=== PATIENT | male | born 1940 | race Caucasian/White ===

== ENCOUNTER 2017-12-10 16:37 | Inpatient (IN) | payer OTHER, MEDICARE ==
[~2017-12-10] VITALS: Ht 182.9 cm; Wt 98.7 kg
[2017-12-10 17:01] LABS: HEMATOCRIT 45.9 % (38.0-50.0); HEMOGLOBIN 15.4 G/DL (12.5-16.6); MCH 30.9 PG (29.0-34.0); MCHC 33.6 G/DL (30.0-36.0); RBC DIS.WIDTH-CV 12.6 % (11.8-14.6); RBC DIS.WIDTH-SD 42.5 % (39-53); RED BLOOD COUNT 4.99 M/uL (4.00-5.50); WHITE BLOOD COUNT 18.5 K/uL (4.1-10.2)
[2017-12-10 17:20] LABS: CHLORIDE 107 mEq/L (99-109); POTASSIUM 5.3 mEq/L (3.7-5.4); SODIUM 145 mEq/L (136-147)
[2017-12-10 17:22] LABS: GLUCOSE 164 mg/dL (70-99)
[2017-12-10 17:26] LABS: CREATININE 1.3 mg/dL (0.6-1.3); GFR ESTIMATE (CALCULATED) 57 mL/min/ (58.99-99999)
[2017-12-10 17:27] LABS: UREA NITROGEN (BUN) 44 mg/dL (9-23)
[2017-12-10 17:28] LABS: CREATINE KINASE 433 IU/L (1-294)
[2017-12-10 18:37] LABS: HEMATOLOGY COMMENT 1 SN; PLAT.SUFFICIENCY ADEQUATE; PLATELET COUNT 245 K/uL (156-360)
[2017-12-10 19:31] LABS: APPEARANCE CLEAR ((CLEAR)); BILIRUBIN NEGATIVE; BLOOD NEGATIVE; COLOR YELLOW ((YELLOW)); GLUCOSE (STRIP) 50; KETONES 5; LEUKOCYTES NEGATIVE; NITRITE NEGATIVE; PROTEIN (STRIP) NEGATIVE; UCUL ADDED? NO; UROBILINOGEN 0.2 MG/DL (0.2-1.0)
[2017-12-10 19:33] LABS: TROP-I INTERPRETATION NEGATIVE; TROPONIN-I 0.02 ng/mL (0.0-0.30)
[2017-12-10] MEDS ORDERED: OMEPRAZOLE20 M2 PO (19:57)
[2017-12-10] MEDS ORDERED: NAMENDA XR28 MG PO (19:58)
[2017-12-10] MEDS ORDERED: LISINOPRIL40 MG PO (19:59)
[2017-12-10] MEDS ORDERED: GLUCOPHAGE500 MG PO (20:00)
[2017-12-10] MEDS ORDERED: NEURONTIN300 MG PO (20:01)
[2017-12-10] MEDS ORDERED: NOVOLOG PE100 UNITS/ SC (20:02)
[2017-12-10] MEDS ORDERED: LEVEMIR FL100 UNIT/1 SC (20:05)
[2017-12-10] MEDS ORDERED: ARICEPT23 MG PO (20:06)
[2017-12-10] MEDS ORDERED: SIMVASTATIN40 MG PO (20:06)
[2017-12-10] MEDS ORDERED: ALEVE220 MG PO (20:07)
[2017-12-10] MEDS ORDERED: ALLERGY RELIEF180 MG PO (20:10)
[2017-12-10] MEDS ORDERED: FISH OIL 1,2001 EAC7 PO (20:11)
[2017-12-10] MEDS ORDERED: VITAMIN D2000 UNIT PO (20:12)
[2017-12-10] MEDS ORDERED: ONCE DAILY1 EACH PO (20:12)
[2017-12-10] MEDS ORDERED: ASCORBIC ACID500 M3 PO (20:14)
[2017-12-10] MEDS ORDERED: B-121000 MC2 PO (20:14)
[2017-12-10] MEDS ORDERED: VITAMIN E400 UNIT PO (20:15)
[2017-12-10] MEDS ORDERED: SLEEP AID50 MG PO (20:16)
[2017-12-10] MEDS ORDERED: FLOMAX0.4 MG PO (20:21)
[2017-12-10] MEDS ORDERED: QUESTRAN POWDE378 GM PO (20:23)
[2017-12-10] MEDS ORDERED: MOBIC7.5 MG PO (20:23)
[2017-12-11] VITALS (7 sets, daily range): BP systolic 114–153; BP diastolic 65–85
[2017-12-11 01:25] LABS: ALBUMIN 3.7 g/dL (3.2-4.8)
[2017-12-11 01:28] LABS: TOTAL PROTEIN 5.9 g/dL (6.4-8.3)
[2017-12-11 01:30] LABS: TOTAL BILIRUBIN 0.6 mg/dL (0.0-1.0)
[2017-12-11 01:31] LABS: ALKALINE PHOSPHATASE 67 IU/L (3-129)
[2017-12-11 01:33] LABS: AST (GOT) 18 IU/L (2-34); DIRECT BILIRUBIN 0.3 mg/dL (0.0-0.3)
[2017-12-11 01:34] LABS: ALT (GPT) 16 IU/L (3-49)
[2017-12-11 01:40] LABS: TROP-I INTERPRETATION NEGATIVE; TROPONIN-I 0.01 ng/mL (0.0-0.30)
[2017-12-11 02:59] LABS: HDL CHOLESTEROL 26 MG/DL (Desirable>=40); LDL CHOLESTEROL 59 mg/dL (Desirable<100); NON-HDL CHOLESTEROL 90 mg/dL (Desirable<160); TOTAL CHOLESTEROL 116 mg/dL (Desirable<200); TRIGLYCERIDES 156 MG/DL (Normal: <150)
[2017-12-11 07:01] LABS: TROP-I INTERPRETATION NEGATIVE; TROPONIN-I 0.01 ng/mL (0.0-0.30)
[2017-12-11 09:30] LABS: HEMOGLOBIN A1c (GLYCOHEMOGLOB) 7.3 % (Below 5.7)
[2017-12-11 12:51] LABS: D-DIMER ELISA < 150.00 ng/mLDDU (<230)
[2017-12-12 04:20] VITALS: BP 140/74
[2017-12-12 05:42] LABS: BASOPHIL (%) 0.5 % (0-1); BASOPHIL COUNT 0.1 K/uL (0-0.1); EOSINOPHIL (%) 5.3 % (0-5); EOSINOPHIL COUNT 0.5 K/uL (0-0.3); IMMATURE GRANULOCYTE (%) 0.4 % (0.0-0.7); LYMPHOCYTE (%) 22.5 % (15-42); LYMPHOCYTE COUNT 2.2 K/uL (1.0-2.8); MCH 29.7 PG (29.0-34.0); MCHC 32.2 G/DL (30.0-36.0); MCV 92.1 FL (86-99); MONOCYTE (%) 9.7 % (3-12); MONOCYTE COUNT 0.9 K/uL (0-0.8); NEUTROPHIL (%) 61.6 % (45-76); NEUTROPHIL COUNT 5.9 K/uL (1.8-6.4); PLATELET COUNT 214 K/uL (156-360); RBC DIS.WIDTH-CV 12.6 % (11.8-14.6); RBC DIS.WIDTH-SD 42.6 % (39-53); RED BLOOD COUNT 4.45 M/uL (4.00-5.50); WHITE BLOOD COUNT 9.7 K/uL (4.1-10.2)
[2017-12-12 05:46] LABS: HEMOGLOBIN 13.2 G/DL (12.5-16.6)
[2017-12-12 05:48] LABS: ALBUMIN 3.5 G/DL (3.2-4.8); ALKALINE PHOSPHATASE 46 IU/L (3-129); ALT (GPT) 12 IU/L (3-49); AST (GOT) 12 IU/L (2-34); CHLORIDE 106 MEQ/L (99-109); GFR ESTIMATE (CALCULATED) > 59 mL/min/ (58.99-99999); GLUCOSE 172 mg/dL (70-99); POTASSIUM 4.5 MEQ/L (3.7-5.4); SODIUM 141 MEQ/L (136-147); TOTAL BILIRUBIN 0.6 MG/DL (0.0-1.0); TOTAL PROTEIN 5.6 G/DL (6.4-8.3); UREA NITROGEN (BUN) 22 mg/dL (9-23)
[2017-12-12 07:13] VITALS: BP 132/70
[2017-12-12 09:21] LABS: CREATINE KINASE 202 IU/L (1-294)
[2017-12-12 11:15] VITALS: BP 135/79
[2017-12-12 16:52] VITALS: BP 139/78
[2017-12-12 20:00] VITALS: BP 129/66
[2017-12-12 23:55] VITALS: BP 114/66
[2017-12-13 04:00] VITALS: BP 135/83
[2017-12-13 05:14] LABS: BASOPHIL (%) 0.4 % (0-1); EOSINOPHIL (%) 4.8 % (0-5); EOSINOPHIL COUNT 0.5 K/uL (0-0.3); HEMATOCRIT 43.2 % (38.0-50.0); HEMOGLOBIN 14.2 G/DL (12.5-16.6); IMMATURE GRANULOCYTE (%) 0.5 % (0.0-0.7); LYMPHOCYTE (%) 17.7 % (15-42); LYMPHOCYTE COUNT 1.8 K/uL (1.0-2.8); MCH 30.1 PG (29.0-34.0); MCHC 32.9 G/DL (30.0-36.0); MCV 91.5 FL (86-99); NEUTROPHIL (%) 66.6 % (45-76); NEUTROPHIL COUNT 6.7 K/uL (1.8-6.4); PLATELET COUNT 241 K/uL (156-360); RBC DIS.WIDTH-CV 12.5 % (11.8-14.6); RBC DIS.WIDTH-SD 41.9 % (39-53); RED BLOOD COUNT 4.72 M/uL (4.00-5.50); WHITE BLOOD COUNT 10.1 K/uL (4.1-10.2)
[2017-12-13 05:44] LABS: CHLORIDE 106 MEQ/L (99-109); GFR ESTIMATE (CALCULATED) > 59 mL/min/ (58.99-99999); GLUCOSE 173 mg/dL (70-99); POTASSIUM 4.4 MEQ/L (3.7-5.4); SODIUM 140 MEQ/L (136-147); UREA NITROGEN (BUN) 20 mg/dL (9-23)
[2017-12-13 08:36] VITALS: BP 127/84
[2017-12-13] MEDS ORDERED: CLOPIDOGREL75 MG PO (11:18)
[2017-12-13] MEDS ORDERED: NOVOLOG 10100 UNITS/ SC (11:21)
[2017-12-13] MEDS ORDERED: Salonpas 4% Patch TD (11:21)
[2017-12-13] MEDS ORDERED: TYLENOL EXTRA500 MG PO (11:22)
== END 2017-12-13 13:17 | DRG 312 ==
LOC: EME 16:37 → 4EAST 23:53 → EDOF 23:53 → ENRESERV 23:54 → 4EAST 12-11 00:44
PROVIDERS: Emergency Medicine; Hospitalist
DX: R55 Syncope and collapse (principal); I95.9 Hypotension, unspecified; S00.81XA Abrasion of other part of head, initial encounter; W18.2XXA Fall in (into) shower or empty bathtub, initial encounter; Y93.E1 Activity, personal bathing and showering; M62.82 Rhabdomyolysis; E86.0 Dehydration; E78.5 Hyperlipidemia, unspecified; I10 Essential (primary) hypertension; E11.40 Type 2 diabetes mellitus with diabetic neuropathy, unspecified; G30.9 Alzheimer's disease, unspecified; F02.80 Dementia in other diseases classified elsewhere, unspecified severity, without behavioral disturbance, psychotic disturbance, mood disturbance, and anxiety; G47.33 Obstructive sleep apnea (adult) (pediatric); I65.23 Occlusion and stenosis of bilateral carotid arteries; G89.29 Other chronic pain; M43.17 Spondylolisthesis, lumbosacral region; M48.061 Spinal stenosis, lumbar region without neurogenic claudication; N40.0 Benign prostatic hyperplasia without lower urinary tract symptoms; F17.290 Nicotine dependence, other tobacco product, uncomplicated; Z66 Do not resuscitate; E66.9 Obesity, unspecified; Q76.0 Spina bifida occulta; Z91.19 Patient's noncompliance with other medical treatment and regimen; Z98.1 Arthrodesis status; Z68.31 Body mass index [BMI] 31.0-31.9, adult
CPT/HCPCS: 70450; 71046; 72148; 80048; 80053; 80061; 80076; 81003; 82550; 82550 91; 82948; 83036; 83605; 84484; 85025; 85027; 85379; 87040; 93005; 93880; 94010; 94799; 95819; 97530 GO; 97530 GP; 99281; 99285; J1650; J1815; J2060; J3010; J7030